=== PATIENT | female | born 1995 | race Hispanic/Latino ===

== ENCOUNTER 2023-03-18 15:20 | Day surgery (SDC) | payer BC ==
[2023-03-18] MEDS ORDERED: hydrALAZINE 20 MG/ML VIAL SLOW IVP PRN (16:28)
[2023-03-18 16:34] LABS: Fetal Membranes Rupture No Membranes Rupture (No Rupture)
== END 2023-03-18 17:49 | disposition home or self-care (01) ==
LOC: CSHLD/OP 15:20
PROVIDERS: ATTEND Family Medicine
DX: O47.1 False labor at or after 37 completed weeks of gestation (principal); O41.93X0 Disorder of amniotic fluid and membranes, unspecified, third trimester, not applicable or unspecified; O99.283 Endocrine, nutritional and metabolic diseases complicating pregnancy, third trimester; E78.5 Hyperlipidemia, unspecified; O10.913 Unspecified pre-existing hypertension complicating pregnancy, third trimester; Z3A.38 38 weeks gestation of pregnancy
CPT/HCPCS: 84112; 99283

== ENCOUNTER 2023-03-29 21:45 | Inpatient (IN) | payer BC ==
[2023-03-30] MEDS ORDERED: hydrALAZINE 20 MG/ML VIAL SLOW IVP PRN ×2 (00:09→00:56)
[2023-03-30 00:20] LABS: Fetal Membranes Rupture RUPTURE DETECTED (No Rupture)
[2023-03-30] MEDS ORDERED: Lidocaine 1% (PF) 30 ML VIAL SC PRN (00:56)
[2023-03-30] MEDS ORDERED: Methylergonovine 0.2 MG/ML VIAL IM PRN (00:56)
[2023-03-30] MEDS ORDERED: Lactated Ringer's 1,000 ML IV SCH (00:56)
[2023-03-30] MEDS ORDERED: Ibuprofen 800 MG TAB PO PRN (00:56)
[2023-03-30] MEDS ORDERED: Ondansetron PF 4 MG/2 ML Vial IVP PRN (00:56)
[2023-03-30] MEDS ORDERED: Acetaminophen 500 MG TAB PO PRN (00:56)
[2023-03-30] MEDS ORDERED: NS w/ Oxytocin 30 units 500 ML IV SCH (00:56)
[2023-03-30] MEDS ORDERED: Misoprostol 200 MCG TAB PR PRN (00:56)
[2023-03-30] MEDS ORDERED: fentaNYL 50 mcg/mL 1 mL Vial SLOW IVP PRN (00:56)
[2023-03-30] MEDS ORDERED: Promethazine HCl 25 MG/ML VIAL IM PRN ×2 (00:56→15:17)
[2023-03-30] MEDS ORDERED: HYDROcodone/Acetaminophen 5/325 mg Tablet PO PRN (00:56)
[2023-03-30] MEDS ORDERED: Misoprostol 100 MCG TAB ONE (02:31)
[2023-03-30 04:22] VITALS: BMI 35.1
[2023-03-30 05:51] LABS: Hemoglobin 13.6 g/dL (12.0-15.5); Mean Corpuscular Hemoglobin 33.3 pg (27.0-33.0); Mean Platelet Volume 9.8 fl (7.4-10.4); Platelet Count 162 10x3/uL (150-450); RBC Distribution Width 11.8 % (11.5-14.5); Red Blood Cell (RBC) Count 4.09 10x6/uL (3.90-5.03); White Blood Cell (WBC) Count 7.2 10x3/uL (3.5-10.5)
[2023-03-30 06:11] LABS: Hep B Surf Ag - L&D Non-Reactive S/CO (NonReactive)
[2023-03-30 06:12] LABS: HBSAg Index 0.17 S/CO (0-0.99); Syphilis Antibody Nonreactive (Nonreactive); Syphilis Antibody Index 0.13 S/CO (<1.00 Non-Reactive)
[2023-03-30 07:06] LABS: Albumin 3.8 g/dL (3.5-5.0); Anion Gap 18 mmol/L (10-20); BUN (Urea Nitrogen) 6 mg/dL (7.0-18.7); Bilirubin, Total 0.5 mg/dL (0.2-1.2); Calc. Creatinine Clearance 215 mL/min (70-130); Calcium 9.5 mg/dL (7.6-10.4); Carbon Dioxide 18 mmol/L (22-29); Chloride 106 mmol/L (98-107); Estimated GFR 129; Globulin 2.7 g/dL (2.4-3.5); Glucose 82 mg/dL (70-105); Potassium 3.6 mmol/L (3.5-5.1); Protein, Total 6.5 g/dL (6.0-8.3); Sodium 138 mmol/L (136-145)
[2023-03-30 07:07] LABS: ALT (SGPT) 23 U/L (8-55); AST (SGOT) 29 U/L (5-34); Alkaline Phosphatase 143 U/L (40-110)
[2023-03-30] MEDS ORDERED: Bupivacaine PF 0.5% 30 ML VIAL ONE (08:00)
[2023-03-30] MEDS ORDERED: fentaNYL/Ropivacaine Epidural 100 ML ONE (14:24)
[2023-03-30] MEDS ORDERED: Acetaminophen 325 MG TAB PO PRN (15:17)
[2023-03-30] MEDS ORDERED: ePHEDrine Sulfate 50 MG/10 ML VIAL SLOW IVP PRN (15:17)
[2023-03-30] MEDS ORDERED: diphenhydrAMINE 50 MG/ML VIAL IVP PRN (15:17)
[2023-03-30] MEDS ORDERED: Lactated Ringer's 500 ML IV PRN (15:17)
[2023-03-30] MEDS ORDERED: Naloxone HCl 0.4 mg/ml Vial IVP PRN ×2 (15:17)
[2023-03-30] MEDS ORDERED: Moisturizing Cream (Eucerin) 113 GM JAR TOP PRN (15:17)
[2023-03-30] MEDS ORDERED: Communication Order-Pharmacy FS SCH (15:30)
[2023-03-30] MEDS ORDERED: Calcium Carbonate 500 MG ChewTAB PO PRN (19:41)
[2023-03-31] MEDS: fentaNYL 2 mcg/Ropivacaine 0.2% Epidural 100 ML CADD EPIDURAL SCH ×3 (00:04→14:28)
[2023-03-31] MEDS: Ampicillin 2 GM in Sodium Chloride 0.9% 100 ML IVPB SCH ×3 (04:55→21:13)
[2023-03-31] MEDS ORDERED: Gentamicin 320 MG, Admixture Fee 1 EACH in Sodium Chloride 0.9% 100 ML IVPB SCH (05:30)
[2023-03-31] MEDS: Ondansetron PF 4 MG/2 ML Vial IVP PRN ×2 (05:57→16:40)
[2023-03-31] MEDS ORDERED: Gentamicin 80 MG/2 ML VIAL IM SCH (06:00)
[2023-03-31] MEDS: Misoprostol 100 MCG TAB PO SCH ×4 (08:05→17:22)
[2023-03-31] MEDS: Dextrose 5%-Lactated Ringers 1,000 ML IV SCH ×3 (08:06→17:22)
[2023-03-31] MEDS ORDERED: Misoprostol 200 MCG TAB ONE (13:39)
[2023-03-31] MEDS ORDERED: Methylergonovine 0.2 MG/ML VIAL ONE (13:39)
[2023-03-31] MEDS ORDERED: NS w/ Oxytocin 30 units 500 ML IVPB SCH (14:15)
[2023-03-31] MEDS: Ibuprofen 800 MG TAB PO PRN (16:37)
[2023-03-31] MEDS ORDERED: Ondansetron PF 4 MG/2 ML Vial ONE (16:41)
[2023-03-31] MEDS ORDERED: Bisacodyl 10 MG SUPP PR PRN (17:43)
[2023-03-31] MEDS ORDERED: Milk Of Magnesia 30 ML UDCUP PO PRN (17:43)
[2023-03-31] MEDS ORDERED: Boostrix 0.5 ML (Tdap) VIAL (>/=7 yrs of age) IM ONE (17:43)
[2023-03-31] MEDS ORDERED: hydrALAZINE 20 MG/ML VIAL SLOW IVP PRN (17:43)
[2023-03-31] MEDS ORDERED: HYDROcodone/Acetaminophen 5/325 mg Tablet PO SCH (18:00)
[2023-03-31] MEDS ORDERED: Ferrous Sulfate 325 MG TAB PO SCH (18:00)
[2023-03-31 20:45] LABS: Hemoglobin 13.2 g/dL (12.0-15.5); Mean Corpuscular HGB CONC 36.6 g/dL (32.0-36.0); Mean Corpuscular Hemoglobin 33.8 pg (27.0-33.0); Mean Corpuscular Volume 92.3 fl (81.6-98.3); Mean Platelet Volume 9.9 fl (7.4-10.4); Platelet Count 165 10x3/uL (150-450); RBC Distribution Width 11.7 % (11.5-14.5); Red Blood Cell (RBC) Count 3.91 10x6/uL (3.90-5.03); White Blood Cell (WBC) Count 19.9 10x3/uL (3.5-10.5)
[2023-03-31] MEDS ORDERED: Clindamycin/D5W 900 MG in Premix Bag 1 BAG IVPB SCH (21:00)
[2023-03-31] MEDS: Docusate 100 MG CAP PO SCH (21:14)
[2023-03-31 21:15] LABS: MDiff Complete? YES
[2023-03-31 21:18] LABS: Band 13 % (5-11); Lymphocytes 3 % (21-51); Monocytes 1 % (0-10); Neutrophil 83 % (42-75)
[2023-03-31 21:19] LABS: RBC Morph Comment Within Normal Limits
[2023-03-31 21:20] LABS: Platelet Adequacy Comment Appears Adequate
[2023-04-01] MEDS: Ampicillin 2 GM in Sodium Chloride 0.9% 100 ML IVPB SCH ×4 (02:58→21:07)
[2023-04-01 04:08] LABS: #Eosinphils 0.1 10x3/uL (0.0-0.5); #Monocytes 0.9 10x3/uL (0.0-1.1); #Neutrophils 15.7 10x3/uL (1.5-8.4); %Basophils 0.2 % (0.0-2.0); %Eosinophils 0.5 % (0.0-6.0); %Lymphocytes 7.9 % (18.0-47.0); %Monocytes 4.7 % (0.0-10.0); %Neutrophils 85.9 % (40.0-75.0); Hemoglobin 12.9 g/dL (12.0-15.5); Mean Corpuscular HGB CONC 36.1 g/dL (32.0-36.0); Mean Corpuscular Hemoglobin 33.3 pg (27.0-33.0); Mean Corpuscular Volume 92.2 fl (81.6-98.3); Mean Platelet Volume 9.8 fl (7.4-10.4); Platelet Count 132 10x3/uL (150-450); RBC Distribution Width 11.9 % (11.5-14.5); Red Blood Cell (RBC) Count 3.87 10x6/uL (3.90-5.03); White Blood Cell (WBC) Count 18.3 10x3/uL (3.5-10.5)
[2023-04-01] MEDS: Ibuprofen 800 MG TAB PO PRN ×2 (04:16→15:18)
[2023-04-01] MEDS: Ferrous Sulfate 325 MG TAB PO SCH ×2 (07:52→16:42)
[2023-04-01] MEDS: Docusate 100 MG CAP PO SCH ×2 (08:59→21:06)
[2023-04-01] MEDS: Prenatal Vitamin 1 TAB PO SCH (08:59)
[2023-04-02] MEDS: Ampicillin 2 GM in Sodium Chloride 0.9% 100 ML IVPB SCH (03:14)
[2023-04-02 05:31] LABS: #Eosinphils 0.1 10x3/uL (0.0-0.5); #Monocytes 0.5 10x3/uL (0.0-1.1); #Neutrophils 6.9 10x3/uL (1.5-8.4); %Basophils 0.2 % (0.0-2.0); %Eosinophils 1.6 % (0.0-6.0); %Lymphocytes 14.8 % (18.0-47.0); %Monocytes 5.3 % (0.0-10.0); %Neutrophils 77.6 % (40.0-75.0); Hemoglobin 11.8 g/dL (12.0-15.5); Mean Corpuscular HGB CONC 35.8 g/dL (32.0-36.0); Mean Corpuscular Hemoglobin 33.1 pg (27.0-33.0); Mean Corpuscular Volume 92.7 fl (81.6-98.3); Mean Platelet Volume 9.7 fl (7.4-10.4); Platelet Count 135 10x3/uL (150-450); RBC Distribution Width 11.7 % (11.5-14.5); Red Blood Cell (RBC) Count 3.56 10x6/uL (3.90-5.03); White Blood Cell (WBC) Count 8.8 10x3/uL (3.5-10.5)
[2023-04-02 09:00] VITALS: BP 124/64; TEMP 98.2
[2023-04-02] MEDS: Ferrous Sulfate 325 MG TAB PO SCH (09:10)
[2023-04-02] MEDS: Docusate 100 MG CAP PO SCH (09:10)
[2023-04-02] MEDS: Prenatal Vitamin 1 TAB PO SCH (09:12)
== END 2023-04-02 13:00 | disposition home or self-care (01) | DRG 805 ==
LOC: CSHLD/OP 21:45 → CSHLD 03-30 00:45 → CSHPED 03-31 18:10
PROVIDERS: ADMIT Student in an Organized Health Care Education/Training Program; ATTEND Student in an Organized Health Care Education/Training Program
PROC: 3E0DXGC Introduction of Other Therapeutic Substance into Mouth and Pharynx, External Approach (ICD-10-PCS; 2023-03-30)
PROC: 10H07YZ Insertion of Other Device into Products of Conception, Via Natural or Artificial Opening (ICD-10-PCS; 2023-03-30)
PROC: 10E0XZZ Delivery of Products of Conception, External Approach (ICD-10-PCS; principal; 2023-03-31)
PROC: 10H07YZ Insertion of Other Device into Products of Conception, Via Natural or Artificial Opening (ICD-10-PCS; 2023-03-31)
DX: O42.12 Full-term premature rupture of membranes, onset of labor more than 24 hours following rupture (principal); O41.1030 Infection of amniotic sac and membranes, unspecified, third trimester, not applicable or unspecified; Z37.0 Single live birth; O86.12 Endometritis following delivery; Z3A.39 39 weeks gestation of pregnancy; J45.909 Unspecified asthma, uncomplicated; O99.52 Diseases of the respiratory system complicating childbirth; F43.21 Adjustment disorder with depressed mood; O99.344 Other mental disorders complicating childbirth; O77.0 Labor and delivery complicated by meconium in amniotic fluid; O76 Abnormality in fetal heart rate and rhythm complicating labor and delivery; O62.2 Other uterine inertia; O69.81X0 Labor and delivery complicated by cord around neck, without compression, not applicable or unspecified
CPT/HCPCS: 36415; 51702; 80053; 82570; 84112; 84145; 84156; 85025; 85027; 86140; 86780; 86850; 86900; 86901; 87040; 87340; 99285; J0290; J1580; J2405; J2590; J3010; J3490; S0020